=== PATIENT | male | born 1980 | race Asian ===

== ENCOUNTER 2020-04-13 05:04 | Emergency (ER) | payer OTHER ==
[~2020-04-13] VITALS: Ht 175.3 cm; Wt 77.3 kg
[2020-04-13 06:44] VITALS: BP 141/96
== END 2020-04-13 06:46 | disposition home or self-care (01) ==
LOC: EMS 05:06
DX: S13.4XXA Sprain of ligaments of cervical spine, initial encounter (principal); V49.49XA Driver injured in collision with other motor vehicles in traffic accident, initial encounter; Y93.89 Activity, other specified; Y92.413 State road as the place of occurrence of the external cause; Y99.8 Other external cause status
CPT/HCPCS: 99283; Z7502